=== PATIENT | male | born 1960 | race Caucasian/White ===

== ENCOUNTER 2018-01-13 15:52 | Inpatient (IN) | payer SELFPAY ==
[~2018-01-13] VITALS: Ht 177.8 cm; Wt 101.6 kg
[2018-01-13] MEDS ORDERED: MORPHINE SULFATE 4 MG/ML CPJ (NOT FOR IM USE) IV STA (16:39)
[2018-01-13] MEDS ORDERED: NITROGLYCERIN OINT 1GM/INCH UDPKT TD STA (16:39)
[2018-01-13] MEDS ORDERED: ONDANSETRON HCL 4MG/2ML VIAL IV STA (16:39)
[2018-01-13 17:05] LABS: BASOPHILS % 0.8 % (0.0-2.0); EOSINOPHILS % 1.4 % (0.0-5.0); HEMATOCRIT. 45.5 % (42.0-52.0); HEMOGLOBIN. 15.4 g/dL (14.0-18.0); LYMPHOCYTES % 29.5 % (20.0-50.0); MEAN CORPUSCULAR VOLUME 91.3 fL (80.0-94.0); MEAN PLATELET VOLUME 7.8 fl (7.4-10.4); NEUTROPHILS % 56.3 % (40.0-76.0); PLATELET 110 x1000/uL (130-400); RED BLOOD CELL COUNT 4.98 mill/uL (4.7-6.1); RED CELL DISTRIBUTION WIDTH 15.9 % (11.6-14.6)
[2018-01-13 17:10] LABS: *AMPHETAMINES SCREEN URINE NEGATIVE (NEGATIVE); *BARBITURATES SCREEN URINE NEGATIVE (NEGATIVE); *BENZODIAZEPINES SCREEN URINE NEGATIVE (NEGATIVE); *COCAINE SCREEN URINE NEGATIVE (NEGATIVE); CANNABINOID URINE SCREEN NEGATIVE (NEGATIVE); METHADONE URINE SCREEN NEGATIVE (NEGATIVE); OPIATES URINE SCREEN NEGATIVE (NEGATIVE); PHENCYCLIDINE URINE SCREEN NEGATIVE (NEGATIVE)
[2018-01-13 17:15] LABS: INR 1.1; PARTIAL THROMBOPLASTIN TIME 24.5 sec (23.4-31.0); PROTHROMBIN TIME 10.9 sec (9.4-11.6)
[2018-01-13 17:16] LABS: CHLORIDE 101 mEq/L (98-107)
[2018-01-13 17:22] LABS: CREATINE KINASE 152 IU/L (39-308)
[2018-01-13 17:26] LABS: CREATINE KINASE MB FRACTION 1.3 ng/mL (0.5-3.6)
[2018-01-13] MEDS ORDERED: NITROGLYCERIN 0.4MG TABLET SL SL PRN (17:45)
[2018-01-13] MEDS ORDERED: LEVOTHYROXINE SODIUM 50MCG TABLET PO ONE (17:45)
[2018-01-13] MEDS ORDERED: ONDANSETRON HCL 4MG/2ML VIAL IV PRN (17:45)
[2018-01-13] MEDS ORDERED: CLONIDINE 0.1MG TABLET PO PRN (17:45)
[2018-01-13] MEDS: SODIUM CHLORIDE 0.9% 1,000 ML IV SCH (18:17)
[2018-01-13 21:15] VITALS: BP 135/63
[2018-01-14] VITALS: BP 135/63
[2018-01-14] MEDS: SODIUM CHLORIDE 0.9% 1,000 ML IV SCH ×2 (02:58→10:42)
[2018-01-14] MEDS: MORPHINE SULFATE 4 MG/ML CPJ (NOT FOR IM USE) IV PRN ×2 (02:58→16:46)
[2018-01-14 03:00] LABS: CLARITY URINE CLEAR (CLEAR); COLOR URINE YELLOW (YELLOW); KETONES URINE TRACE (NEGATIVE); LEUKOCYTE ESTERASE URINE NEGATIVE (NEGATIVE); NITRITE URINE NEGATIVE (NEGATIVE); OCCULT BLOOD URINE TRACE (NEGATIVE); PH URINE 5.5 (4.5-8.0); PROTEIN URINE NEGATIVE (NEGATIVE); SPECIFIC GRAVITY URINE 1.023 (1.005-1.030)
[2018-01-14 04:00] VITALS: BP 128/60
[2018-01-14] MEDS: LEVOTHYROXINE SODIUM 50MCG TABLET PO SCH (07:25)
[2018-01-14 08:00] VITALS: BP 138/64
[2018-01-14] MEDS: HYDROCODONE/ACETAMINOPHEN 5/325MG TABLET PO PRN (08:45)
[2018-01-14] MEDS ORDERED: GLIP10TA10 PO (08:49)
[2018-01-14] MEDS ORDERED: LOSA25TA12 PO (08:49)
[2018-01-14] MEDS ORDERED: FURO20TA4 PO (08:49)
[2018-01-14] MEDS ORDERED: ATOR20TA65 PO (08:49)
[2018-01-14] MEDS ORDERED: LEVO100T9 PO (08:49)
[2018-01-14] MEDS ORDERED: SITA1TAB2 PO (08:49)
[2018-01-14] MEDS ORDERED: DEXTROSE 50% WATER 50ML SYRINGE IV PRN (09:00)
[2018-01-14 09:43] LABS: BASOPHILS % 0.5 % (0.0-2.0); EOSINOPHILS % 0.9 % (0.0-5.0); HEMATOCRIT. 41.2 % (42.0-52.0); HEMOGLOBIN. 14.3 g/dL (14.0-18.0); LYMPHOCYTES % 14.6 % (20.0-50.0); MEAN CORPUSCULAR HEMOGLOBIN 31.8 pg (28.0-32.0); MEAN CORPUSCULAR VOLUME 91.5 fL (80.0-94.0); MEAN PLATELET VOLUME 8.3 fl (7.4-10.4); MONOCYTES % 13.9 % (2.0-8.0); NEUTROPHILS % 70.1 % (40.0-76.0); PLATELET 91 x1000/uL (130-400); RED BLOOD CELL COUNT 4.51 mill/uL (4.7-6.1)
[2018-01-14] MEDS: INSULIN GLARGINE UD 100 UNITS/ML SYR SUBCUT SCH ×2 (11:21→22:01)
[2018-01-14] MEDS ORDERED: REGADENOSON 0.4 MG/5 ML IV ONE ×2 (11:45→14:59)
[2018-01-14] MEDS: BLOOD SUGAR DIAGNOSTIC STRIP TEST SCH ×3 (12:20→21:00)
[2018-01-14] MEDS: LISINOPRIL 5MG TABLET PO SCH (12:30)
[2018-01-14] MEDS ORDERED: INSULIN LISPRO 100 UNITS/ML SUBCUT SCH (12:50)
[2018-01-14] MEDS: INSULIN LISPRO 100 UNITS/ML SUBCUT SCH ×3 (12:50→22:02)
[2018-01-14 13:00] VITALS: BP 136/66
[2018-01-14 16:00] VITALS: BP 140/69
[2018-01-14 20:30] VITALS: BP 144/76
[2018-01-14] MEDS: ATORVASTATIN CALCIUM 40MG TABLET PO SCH (22:00)
[2018-01-15 00:13] VITALS: BP 119/72
[2018-01-15] MEDS: HYDROCODONE/ACETAMINOPHEN 5/325MG TABLET PO PRN (01:00)
[2018-01-15 04:00] VITALS: BP 133/80
[2018-01-15] MEDS: LEVOTHYROXINE SODIUM 50MCG TABLET PO SCH (06:32)
[2018-01-15] MEDS: BLOOD SUGAR DIAGNOSTIC STRIP TEST SCH ×4 (06:40→21:00)
[2018-01-15 06:42] LABS: BASOPHILS % 0.6 % (0.0-2.0); EOSINOPHILS % 3.3 % (0.0-5.0); HEMATOCRIT. 41.5 % (42.0-52.0); HEMOGLOBIN. 14.2 g/dL (14.0-18.0); LYMPHOCYTES % 22.1 % (20.0-50.0); MEAN CORPUSCULAR HEMOGLOBIN 31.1 pg (28.0-32.0); MEAN PLATELET VOLUME 8.2 fl (7.4-10.4); MONOCYTES % 11.8 % (2.0-8.0); NEUTROPHILS % 62.2 % (40.0-76.0); PLATELET 83 x1000/uL (130-400); RED BLOOD CELL COUNT 4.55 mill/uL (4.7-6.1); RED CELL DISTRIBUTION WIDTH 15.7 % (11.6-14.6)
[2018-01-15 07:00] LABS: CHLORIDE 100 mEq/L (98-107)
[2018-01-15 08:00] VITALS: BP 127/79
[2018-01-15] MEDS: MORPHINE SULFATE 4 MG/ML CPJ (NOT FOR IM USE) IV PRN (08:44)
[2018-01-15] MEDS: LISINOPRIL 5MG TABLET PO SCH (08:46)
[2018-01-15] MEDS: INSULIN LISPRO 100 UNITS/ML SUBCUT SCH ×4 (08:46→21:36)
[2018-01-15 12:00] VITALS: BP 109/66
[2018-01-15] MEDS: INSULIN GLARGINE UD 100 UNITS/ML SYR SUBCUT SCH ×2 (12:18→21:36)
[2018-01-15] MEDS ORDERED: ACETAMINOPHEN 325MG TABLET PO PRN (12:45)
[2018-01-15] MEDS ORDERED: CEFTRIAXONE 1 G PREMIX 50 ML IV SCH (14:00)
[2018-01-15 20:00] VITALS: BP 110/66
[2018-01-15] MEDS: ATORVASTATIN CALCIUM 40MG TABLET PO SCH (21:36)
[2018-01-16] VITALS: BP 104/66
[2018-01-16 04:00] VITALS: BP 100/61
[2018-01-16] MEDS: LEVOTHYROXINE SODIUM 50MCG TABLET PO SCH (06:15)
[2018-01-16] MEDS: BLOOD SUGAR DIAGNOSTIC STRIP TEST SCH ×2 (06:24→12:10)
[2018-01-16 08:00] VITALS: BP 101/64
[2018-01-16] MEDS: LISINOPRIL 5MG TABLET PO SCH ×2 (08:05→13:48)
[2018-01-16] MEDS: INSULIN LISPRO 100 UNITS/ML SUBCUT SCH ×2 (08:12→13:09)
[2018-01-16 12:00] VITALS: BP 126/82
[2018-01-16] MEDS: INSULIN GLARGINE UD 100 UNITS/ML SYR SUBCUT SCH (13:22)
[2018-01-16] MEDS ORDERED: DIPHENHYDRAMINE 50MG/ML VIAL IV PRN (14:00)
[2018-01-16 17:03] VITALS: BP 126/82
== END 2018-01-16 17:27 | disposition home or self-care (01) | DRG 198 ==
LOC: ER 15:56 → EDBEDREQ 16:42 → 6WST 17:34 → EDBEDREQ 17:37 → EDBEDREQTM 17:37 → ENRESERV 20:07
PROVIDERS: ADMIT Internal Medicine; ATTEND Internal Medicine
DX: R07.89 Other chest pain (principal); I25.2 Old myocardial infarction; K85.90 Acute pancreatitis without necrosis or infection, unspecified; E44.0 Moderate protein-calorie malnutrition; E03.9 Hypothyroidism, unspecified; I10 Essential (primary) hypertension; E11.9 Type 2 diabetes mellitus without complications; E87.1 Hypo-osmolality and hyponatremia; E78.5 Hyperlipidemia, unspecified; E66.9 Obesity, unspecified; Z82.49 Family history of ischemic heart disease and other diseases of the circulatory system; Z83.3 Family history of diabetes mellitus; Z68.32 Body mass index [BMI] 32.0-32.9, adult
CPT/HCPCS: 36415; 71045; 78452; 80048; 80053; 80061; 80305; 81003; 82550; 82553; 82962; 83036; 83690; 83735; 83880; 84443; 84484; 85025; 85610; 85730; 87040; 93005; 93017; 93306; 96361; 96374; 96375; 99285; A9500; J0696; J1815; J2270; J2405; J2785; J7030

== ENCOUNTER 2018-03-24 22:48 | Inpatient (IN) | payer SELFPAY ==
[~2018-03-24] VITALS: Ht 167.6 cm; Wt 103.4 kg
[~2018-03-24 22:48] MED LIST: ATOR20TA65 PO; FURO20TA4 PO; GLIP10TA10 PO; LEVO100T9 PO; LOSA25TA12 PO; SITA1TAB2 PO
[2018-03-24] MEDS ORDERED: SODIUM CHLORIDE 0.9% 1,000 ML IV ONE (23:42)
[2018-03-25 00:37] LABS: BASOPHILS % 0.4 % (0.0-2.0); EOSINOPHILS % 2.2 % (0.0-5.0); HEMATOCRIT. 40.2 % (42.0-52.0); HEMOGLOBIN. 14.1 g/dL (14.0-18.0); LYMPHOCYTES % 28.6 % (20.0-50.0); MEAN CORPUSCULAR HEMOGLOBIN 32.1 pg (28.0-32.0); MEAN CORPUSCULAR VOLUME 91.5 fL (80.0-94.0); MEAN PLATELET VOLUME 7.7 fl (7.4-10.4); MONOCYTES % 14.2 % (2.0-8.0); NEUTROPHILS % 54.6 % (40.0-76.0); PLATELET 94 x1000/uL (130-400); RED BLOOD CELL COUNT 4.39 mill/uL (4.7-6.1); RED CELL DISTRIBUTION WIDTH 14.9 % (11.6-14.6)
[2018-03-25 00:50] LABS: CHLORIDE 98 mEq/L (98-107)
[2018-03-25 00:57] LABS: BETA HYDROXYBUTYRATE 0.4 mMol/L (0.0-0.3)
[2018-03-25 01:28] LABS: CLARITY URINE CLEAR (CLEAR); COLOR URINE YELLOW (YELLOW); KETONES URINE TRACE (NEGATIVE); LEUKOCYTE ESTERASE URINE NEGATIVE (NEGATIVE); NITRITE URINE NEGATIVE (NEGATIVE); OCCULT BLOOD URINE TRACE (NEGATIVE); PROTEIN URINE NEGATIVE (NEGATIVE); SPECIFIC GRAVITY URINE 1.025 (1.005-1.030)
[2018-03-25] MEDS ORDERED: SODIUM CHLORIDE 0.9% 1,000 ML IV SCH (03:34)
[2018-03-25] MEDS ORDERED: NITROGLYCERIN 0.4MG TABLET SL SL PRN (07:45)
[2018-03-25] MEDS ORDERED: MAGNESIUM/ALUMINUM HYDROXIDE/SIMETHICONE 30ML UDC PO PRN (07:45)
[2018-03-25] MEDS ORDERED: NA PHOS,M-B/NA PHOS,DI-BA ENEMA 118ML PR PRN (07:45)
[2018-03-25] MEDS ORDERED: DEXTROSE 50% WATER 50ML SYRINGE IV PRN (07:45)
[2018-03-25] MEDS ORDERED: GUAIFENESIN 200MG/10ML SUGAR FREE UDC PO PRN (07:45)
[2018-03-25] MEDS ORDERED: LORAZEPAM 0.5MG TABLET PO PRN (07:45)
[2018-03-25] MEDS ORDERED: ACETAMINOPHEN 325MG TABLET PO PRN (07:45)
[2018-03-25] MEDS ORDERED: KETOROLAC 15MG/ML VIAL IV PRN (07:45)
[2018-03-25] MEDS ORDERED: DIPHENHYDRAMINE 50MG/ML VIAL IV PRN (07:45)
[2018-03-25] MEDS ORDERED: DOCUSATE SODIUM 100MG CAPSULE PO PRN (07:45)
[2018-03-25] MEDS ORDERED: CLONIDINE 0.1MG TABLET PO PRN (07:45)
[2018-03-25] MEDS ORDERED: ONDANSETRON HCL 4MG/2ML VIAL IV PRN (07:45)
[2018-03-25 08:45] VITALS: BP 169/81
[2018-03-25] MEDS: BLOOD SUGAR DIAGNOSTIC STRIP TEST SCH ×4 (08:50→20:19)
[2018-03-25] MEDS ORDERED: IPRATROPIUM/ALBUTEROL 0.5-3(2.5)MG/3ML NEB INH PRN (09:00)
[2018-03-25 09:30] VITALS: BP 169/81
[2018-03-25] MEDS: FAMOTIDINE 20MG TABLET PO SCH ×2 (11:41→20:30)
[2018-03-25] MEDS: ASPIRIN 325MG EC TABLET PO SCH (11:41)
[2018-03-25] MEDS: LISINOPRIL 20MG TABLET PO SCH ×2 (11:42→20:31)
[2018-03-25 11:45] VITALS: BP 148/78
[2018-03-25] MEDS: ENOXAPARIN 40MG/0.4ML SYR SUBCUT SCH (11:46)
[2018-03-25] MEDS: INSULIN GLARGINE UD 100 UNITS/ML SYR SUBCUT SCH (11:47)
[2018-03-25 12:00] VITALS: BP 148/78
[2018-03-25] MEDS: INSULIN LISPRO 100 UNITS/ML SUBCUT SCH ×3 (12:40→20:30)
[2018-03-25 16:00] VITALS: BP 138/72
[2018-03-25 20:00] VITALS: BP 130/56
[2018-03-25] MEDS ORDERED: ZOLPIDEM TARTRATE 5MG TABLET PO PRN (21:00)
[2018-03-26] VITALS: BP 148/91
[2018-03-26 03:42] VITALS: BP 128/69
[2018-03-26] MEDS: INSULIN LISPRO 100 UNITS/ML SUBCUT SCH (07:03)
[2018-03-26] MEDS: BLOOD SUGAR DIAGNOSTIC STRIP TEST SCH (07:04)
[2018-03-26 08:26] VITALS: BP 132/86
[2018-03-26] MEDS: LISINOPRIL 20MG TABLET PO SCH (08:27)
[2018-03-26] MEDS: ASPIRIN 325MG EC TABLET PO SCH (08:27)
[2018-03-26] MEDS: FAMOTIDINE 20MG TABLET PO SCH (08:27)
[2018-03-26] MEDS: ENOXAPARIN 40MG/0.4ML SYR SUBCUT SCH (08:28)
[2018-03-26 11:09] VITALS: BP 135/85
[2018-03-26] MEDS: INSULIN GLARGINE UD 100 UNITS/ML SYR SUBCUT SCH (11:57)
[2018-03-26 12:28] LABS: *AMPHETAMINES SCREEN URINE NEGATIVE (NEGATIVE); *BARBITURATES SCREEN URINE NEGATIVE (NEGATIVE); *BENZODIAZEPINES SCREEN URINE NEGATIVE (NEGATIVE); *COCAINE SCREEN URINE NEGATIVE (NEGATIVE)
[2018-03-26 12:31] LABS: METHADONE URINE SCREEN NEGATIVE (NEGATIVE); OPIATES URINE SCREEN NEGATIVE (NEGATIVE); PHENCYCLIDINE URINE SCREEN NEGATIVE (NEGATIVE)
[2018-03-26 12:40] LABS: CANNABINOID URINE SCREEN NEGATIVE (NEGATIVE)
== END 2018-03-26 12:10 | disposition home or self-care (01) | DRG 420 ==
LOC: ER 23:14 → EDBEDREQ 03-25 03:39 → EDBEDREQTM 03-25 03:39 → ENRESERV 03-25 07:25 → 5WST 03-25 08:47
PROVIDERS: ADMIT Internal Medicine; ATTEND Internal Medicine
DX: E11.65 Type 2 diabetes mellitus with hyperglycemia (principal); E44.0 Moderate protein-calorie malnutrition; E83.51 Hypocalcemia; K76.0 Fatty (change of) liver, not elsewhere classified; E83.52 Hypercalcemia; E03.9 Hypothyroidism, unspecified; E78.00 Pure hypercholesterolemia, unspecified; E87.1 Hypo-osmolality and hyponatremia; I10 Essential (primary) hypertension; F32.9 Major depressive disorder, single episode, unspecified; E78.1 Pure hyperglyceridemia; R74.0 Nonspecific elevation of levels of transaminase and lactic acid dehydrogenase [LDH]; Z91.14 Patient's other noncompliance with medication regimen; Z79.899 Other long term (current) drug therapy; Z68.36 Body mass index [BMI] 36.0-36.9, adult
CPT/HCPCS: 36415; 71045; 80053; 80061; 80305; 81003; 82010; 82962; 83036; 83690; 83930; 84443; 84484; 85025; 93005; 93970; J1650; J1815; J1885; J7030